=== PATIENT | male | born 1990 | race Asian ===

== ENCOUNTER 2016-12-19 22:02 | Emergency (ER) | payer OTHER ==
[~2016-12-19] VITALS: Ht 170.2 cm; Wt 59.0 kg
[2016-12-20 00:04] VITALS: BP 121/71
[2016-12-20] MEDS ORDERED: MOBI7.5T10 PO (00:43)
[2016-12-20] MEDS ORDERED: ZANA4TAB PO (00:43)
[2016-12-20] MEDS ORDERED: PRED20TA PO (00:43)
[2016-12-20] MEDS ORDERED: OXYCODONE/APAP 5MG/325MG(BULK FOR ED) 1 TABLET PO ONE (00:45)
[2016-12-20] MEDS ORDERED: NAPROXEN 250 MG TAB PO ONE (00:45)
[2016-12-20] MEDS ORDERED: CYCLOBENZAPRINE 10 MG TAB PO ONE (00:45)
--- NOTE | 2016-12-20 09:56 | REP ---
LUMBAR SPINE, FIVE VIEWS: HISTORY: Trauma There is no acute fracture or subluxation. The intervertebral discs are normal in height. The facet joints are normal in appearance. There is slight loss of the normal lordotic curve. IMPRESSION: There is no acute fracture or subluxation. Signed by João Pendleton MD 12/20/2016 10:09 A
== END 2016-12-20 00:58 | disposition home or self-care (01) ==
LOC: M ED 23:38
DX: G89.11 Acute pain due to trauma (principal); M54.5 Low back pain; X50.9XXA Other and unspecified overexertion or strenuous movements or postures, initial encounter; Y92.019 Unspecified place in single-family (private) house as the place of occurrence of the external cause; Y93.89 Activity, other specified; Y99.9 Unspecified external cause status; F17.200 Nicotine dependence, unspecified, uncomplicated

== ENCOUNTER 2017-03-18 21:28 | Emergency (ER) | payer OTHER ==
[~2017-03-18] VITALS: Ht 170.2 cm; Wt 63.6 kg
[~2017-03-18 21:28] MED LIST: MOBI4TAB PO; PRED20TA PO; ZANA4TAB PO
[2017-03-18 21:29] VITALS: BP 140/94
[2017-03-18] MEDS ORDERED: lexapro (21:46)
[2017-03-18] MEDS ORDERED: CYCL10TA PO (23:24)
[2017-03-18] MEDS ORDERED: IBUP80TA PO (23:24)
[2017-03-18] MEDS ORDERED: CYCLOBENZAPRINE 10 MG TAB PO ONE (23:30)
[2017-03-18] MEDS ORDERED: IBUPROFEN 800 MG TAB PO ONE (23:30)
== END 2017-03-18 23:37 | disposition home or self-care (01) ==
LOC: M ED 21:28
DX: S16.1XXA Strain of muscle, fascia and tendon at neck level, initial encounter (principal); W17.89XA Other fall from one level to another, initial encounter; Y92.9 Unspecified place or not applicable; Y93.89 Activity, other specified; Y99.9 Unspecified external cause status